=== PATIENT | female | born 1970 | race Caucasian/White ===

== ENCOUNTER 2023-10-10 10:56 | Day surgery (SDC) | payer BC ==
[2023-10-10 11:44] VITALS: RESP 16; TEMP 98.2
[2023-10-10] MEDS ORDERED: LACTATED RINGERS 1,000 ML IV SCH (11:48)
[2023-10-10] MEDS: IV FLUID CONTINUATION 1,000 ML IV ONE (11:52)
[2023-10-10] MEDS ORDERED: PROPOFOL 10 MG/ML 20 ML VIAL IV ONE (12:33)
--- NOTE | 2023-10-10 12:46 | P.PCN ---
Date of Procedure: 10/10/23 Procedure(s) Performed: BRIEF HISTORY: Patient is a 53-year-old pleasant white female scheduled for an elective colonoscopy as a part of evaluation of abdominal pain and abdominal bloating for the last several months duration. PROCEDURE PERFORMED: Colonoscopy. PREOPERATIVE DIAGNOSIS: Abdominal pain/abdominal bloating of several months duration. IV sedation per Anesthesia. PROCEDURE: After informed consent was obtained, the patient, was brought into the endoscopy unit. IV sedation was administered by Anesthesia under continuous monitoring. Digital rectal examination was normal. Initially the Olympus CF-160 flexible video colonoscope was then inserted in the rectum, gradually advanced into the cecum without any difficulty. Careful examination was performed as the scope was gradually being withdrawn. Ileocecal valve and the appendiceal orifice were visualized and appeared normal. Prep was excellent. Mucosa of the cecum, ascending colon, transverse colon, descending colon, sigmoid colon, and rectum appeared normal. Retroflexion was performed in the rectum and no lesions were seen. The patient tolerated the procedure well. IMPRESSION: Normal-appearing colon from rectum to cecum with no evidence of colorectal neoplasia.. RECOMMENDATIONS: Findings of this examination were discussed with the patient as well as her family. She was advised to have repeat screening colonoscopy in 10 years.
[2023-10-10 13:15] VITALS: BP 107/67; PULSE 78
== END 2023-10-10 13:30 | disposition home or self-care (01) ==
LOC: ORWHC2ENDO 10:56
PROVIDERS: ATTEND Internal Medicine Gastroenterology
DX: R10.9 Unspecified abdominal pain (principal); R14.0 Abdominal distension (gaseous); I10 Essential (primary) hypertension; F41.9 Anxiety disorder, unspecified; Z88.0 Allergy status to penicillin; Z88.1 Allergy status to other antibiotic agents; Z88.8 Allergy status to other drugs, medicaments and biological substances; Z79.899 Other long term (current) drug therapy
CPT/HCPCS: 81025; 45378; J2704